=== PATIENT | female | born 1950 | race Caucasian/White ===

== ENCOUNTER 2019-03-28 08:30 | Outpatient (CLI) | payer MEDICARE, MEDICAID ==
--- NOTE | 2019-03-28 10:57 | MRI ---
MRI LEFT KNEE WITHOUT CONTRAST ENHANCEMENT: HISTORY: Medial left knee pain x1 month. Difficulty walking. FINDINGS: Exam quality is limited related to patient's body habitus. The anterior as well as posterior cruciate ligaments are intact. The lateral meniscus has a fairly normal shape and appearance. 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 Also some increased signal change involving the free edge o f the posterior horn, which appears to represent an associated free edge tear. The signal to noise ra betsey is suboptimal on this exam. There is medial compartment joint space narrowing associated with the se findings. There are arthritic changes noted with spur formation. There are edema changes adjacent to the MCL. This may just be related to altered walking dynamics rel ated to the medial compartment changes. Lateral collateral ligament and iliotibial band regions appea r unremarkable. There is marked articular cartilage loss at the patella. The medial and lateral patellar retinaculum and quadriceps add patellar tendons are normal. IMPRESSION: 1. Chronic appearing changes of the medial meniscus. 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 There is some increased meniscal tissue seen in the meniscofemoral recess region. Thi s could indicate that there is some sort of chronic displaced flap component to this tear. There is m arked medial compartment joint space narrowing associated with these findings. In addition there does appear to be a free edge, probably radially oriented tear involving the posterior horn. 2. Edema changes superficial to the medial collateral ligament, probably on the basis of the medial c ompartment meniscal changes and altered walking dynamics. 3. 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 POS: [facility]
== END 2019-03-28 08:31 | disposition home or self-care (01) ==
LOC: MRI 08:30
PROVIDERS: ATTEND Family Medicine
DX: M25.562 Pain in left knee (principal); M17.12 Unilateral primary osteoarthritis, left knee; R60.0 Localized edema